=== PATIENT | female | born 1965 | race Caucasian/White ===

== ENCOUNTER 2017-10-20 10:22 | Day surgery (SDC) | payer OTHER ==
[~2017-10-20 10:22] MED LIST: CEFAZOLIN 1 GM INJ; METOCLOPRAMIDE 10 MG INJ; ONDANSETRON 4 MG INJ
[2017-10-20] MEDS ORDERED: LIDOCAINE 2% (SDV) 5 ML INJ (12:07)
[2017-10-20] MEDS ORDERED: DEXAMETHASONE 4 MG/ML 1 ML INJ (12:07)
[2017-10-20] MEDS ORDERED: ROCURONIUM 50 MG INJ (12:07)
[2017-10-20] MEDS ORDERED: MIDAZOLAM 1 MG/ML 2 ML INJ (12:07)
[2017-10-20] MEDS ORDERED: SUCCINYLCHOLINE CHLORIDE 100 MG/5 ML SYG IV (12:07)
[2017-10-20] MEDS ORDERED: FENTAnyl 50 MCG/ML VIAL (12:07)
[2017-10-20] MEDS ORDERED: PROPOFOL 20 ML (12:07)
[2017-10-20] MEDS: POLYMYXIN/BACITRACIN 1L IRRIG (14:22)
[2017-10-20] MEDS: BUPIVACAINE 0.5%/EPI (SDV) 30 ML INJ (14:22)
[2017-10-20] MEDS ORDERED: ROPIVACAINE 0.5 % 30 ML VIAL (14:31)
[2017-10-20] MEDS ORDERED: SUGAMMADEX SODIUM 200 MG/2 ML VIAL IV (14:41)
[2017-10-20] MEDS ORDERED: HYDROmorphONE 1 MG/5 ML IV SYRINGE IV ×2 (15:00→15:30)
[2017-10-20] MEDS ORDERED: hydrALAzine 20 MG INJ (15:03)
[2017-10-20] MEDS ORDERED: MEPERIDINE 25 MG INJ (15:13)
[2017-10-20] MEDS: MEPERIDINE 25 MG INJ IV (15:15)
[2017-10-20] MEDS ORDERED: HYDROCODONE/APAP (5/325) TAB PO ×2 (15:30)
[2017-10-20] MEDS ORDERED: FENTAnyl 50 MCG/ML VIAL IV ×2 (15:30)
[2017-10-20] MEDS ORDERED: morphine 10 MG INJ IV (15:30)
[2017-10-20] MEDS ORDERED: DIPHENHYDRAMINE 50 MG INJ IV (15:30)
== END 2017-10-20 16:58 | disposition home or self-care (01) ==
LOC: SDS 10:22
DX: S52.121D Displaced fracture of head of right radius, subsequent encounter for closed fracture with routine healing (principal); W19.XXXD Unspecified fall, subsequent encounter
CPT/HCPCS: 24365; 73080-RT; 84703; 88304; 88311

== ENCOUNTER 2017-10-30 08:09 | Inpatient (IN) | payer OTHER ==
[2017-10-30] MEDS ORDERED: NACL 0.9% 3 ML SYG IV (10:00)
[2017-10-30] MEDS ORDERED: VANCOMYCIN IV PER PHARMACY XX (10:30)
[2017-10-30 10:51] LABS: ADD MAN DIFF? NO
[2017-10-30 10:53] LABS: WHITE BLOOD COUNT 6.5 10^3/ul (4.8-10.8)
[2017-10-30 10:53] LABS: BASOPHILS % 0.3 % (0.0-2.0); EOSINOPHILS % 0.6 % (0.0-7.0); HEMATOCRIT 32.1 % (37.0-47.0); HEMOGLOBIN 10.5 g/dl (12.0-16.0); LYMPHOCYTES # 1.2 10^3/ul (0.8-2.9); LYMPHOCYTES % 18.8 % (15.0-51.0); MEAN CORPUSCULAR HEMOGLOBIN 29.5 pg (29.0-33.0); MEAN CORPUSCULAR HGB CONC 32.7 g/dl (32.0-37.0); MEAN CORPUSCULAR VOLUME 90.2 fl (82.0-101.0); MEAN PLATELET VOLUME 10.9 fl (7.4-10.4); MONOCYTE # 0.5 10^3/ul (0.3-0.9); MONOCYTES % 6.9 % (0.0-11.0); NEUTROPHIL # 4.8 10^3/ul (1.6-7.5); NEUTROPHILS % 73.2 % (39.0-77.0); PLATELET COUNT 275 10^3/UL (140-415); RED BLOOD COUNT 3.56 10^6/ul (4.20-5.40); RED CELL DISTRIBUTION WIDTH 12.2 % (11.5-14.5)
[2017-10-30] MEDS: PIPER-TAZO 3.375 GM IV (PMX) 100 ML IVPB ×2 (11:00→17:49)
[2017-10-30 11:27] LABS: ALANINE AMINOTRANSFERASE 23 IU/L (13-69); ALBUMIN 3.8 g/dl (3.3-4.9); ALBUMIN/GLOBULIN RATIO 1.31; ALKALINE PHOSPHATASE 79 IU/L (42-121); ANION GAP 14 (8-16); ASPARTATE AMINO TRANSFERASE 22 IU/L (15-46); BILIRUBIN,INDIRECT 0.5 mg/dl (0-1.1); BILIRUBIN,TOTAL 0.5 mg/dl (0.2-1.3); BLOOD UREA NITROGEN 10 mg/dl (7-20); CALCIUM 9.1 mg/dl (8.4-10.2); CARBON DIOXIDE 30 mmol/L (21-31); CHLORIDE 103 mmol/L (97-110); CREATININE 0.74 mg/dl (0.44-1.00); GLUCOSE 89 mg/dl (70-220); POTASSIUM 4.3 mmol/L (3.5-5.1); SODIUM 143 mmol/L (135-144); TOTAL PROTEIN 6.7 g/dl (6.1-8.1)
[2017-10-30] MEDS: SOD CHLORIDE 0.45% 1,000 ML IV ×2 (12:24→23:00)
[2017-10-30] MEDS: HYDROCODONE/APAP (5/325) TAB PO ×2 (12:38→22:01)
[2017-10-30] MEDS: VANCOMYCIN 1.5 GM in SOD CHLORIDE 0.9% 250 ML IVPB (15:01)
[2017-10-30] MEDS: ONDANSETRON 4 MG INJ IV (22:25)
[2017-10-31] MEDS: PIPER-TAZO 3.375 GM IV (PMX) 100 ML IVPB ×4 (00:49→18:04)
[2017-10-31] MEDS: VANCOMYCIN 1 GM 250 ML IVPB ×2 (02:14→14:00)
[2017-10-31] MEDS: SOD CHLORIDE 0.45% 1,000 ML IV (02:18)
[2017-10-31 09:32] LABS: HEMOGLOBIN A1C 5.5 % (0-5.9)
[2017-10-31] MEDS: HYDROCODONE/APAP (5/325) TAB PO ×2 (09:55→18:15)
[2017-11-01] MEDS: SOD CHLORIDE 0.45% 1,000 ML IV ×2 (00:21→10:37)
[2017-11-01] MEDS: PIPER-TAZO 3.375 GM IV (PMX) 100 ML IVPB ×4 (00:21→18:15)
[2017-11-01] MEDS: VANCOMYCIN 1 GM 250 ML IVPB ×2 (02:38→13:03)
[2017-11-01 04:09] LABS: ADD MAN DIFF? NO
[2017-11-01 04:18] LABS: BASOPHILS % 0.6 % (0.0-2.0); EOSINOPHILS # 0.1 10^3/ul (0.0-0.5); EOSINOPHILS % 1.3 % (0.0-7.0); HEMATOCRIT 30.2 % (37.0-47.0); HEMOGLOBIN 9.8 g/dl (12.0-16.0); LYMPHOCYTES # 1.7 10^3/ul (0.8-2.9); LYMPHOCYTES % 33.1 % (15.0-51.0); MEAN CORPUSCULAR HEMOGLOBIN 29.7 pg (29.0-33.0); MEAN CORPUSCULAR HGB CONC 32.5 g/dl (32.0-37.0); MEAN CORPUSCULAR VOLUME 91.5 fl (82.0-101.0); MEAN PLATELET VOLUME 11.2 fl (7.4-10.4); MONOCYTE # 0.5 10^3/ul (0.3-0.9); MONOCYTES % 8.9 % (0.0-11.0); NEUTROPHIL # 2.9 10^3/ul (1.6-7.5); NEUTROPHILS % 55.7 % (39.0-77.0); PLATELET COUNT 260 10^3/UL (140-415); RED CELL DISTRIBUTION WIDTH 11.9 % (11.5-14.5)
[2017-11-01 04:18] LABS: WHITE BLOOD COUNT 5.2 10^3/ul (4.8-10.8)
[2017-11-01 04:39] LABS: ALANINE AMINOTRANSFERASE 24 IU/L (13-69); ALBUMIN 3.1 g/dl (3.3-4.9); ALBUMIN/GLOBULIN RATIO 0.96; ALKALINE PHOSPHATASE 69 IU/L (42-121); ANION GAP 12 (8-16); ASPARTATE AMINO TRANSFERASE 19 IU/L (15-46); BILIRUBIN,INDIRECT 0.3 mg/dl (0-1.1); BILIRUBIN,TOTAL 0.3 mg/dl (0.2-1.3); BLOOD UREA NITROGEN 11 mg/dl (7-20); CALCIUM 8.5 mg/dl (8.4-10.2); CARBON DIOXIDE 26 mmol/L (21-31); CHLORIDE 109 mmol/L (97-110); CREATININE 0.89 mg/dl (0.44-1.00); GLUCOSE 103 mg/dl (70-220); MAGNESIUM 1.9 mg/dl (1.7-2.5); PHOSPHORUS 4.3 mg/dl (2.5-4.9); SODIUM 143 mmol/L (135-144); TOTAL PROTEIN 6.3 g/dl (6.1-8.1)
[2017-11-01] MEDS ORDERED: POLYMYXIN B 500000 UNIT INJ (07:47)
[2017-11-01] MEDS ORDERED: BACITRACIN 50000 UNITS INJ (07:50)
[2017-11-01] MEDS ORDERED: MIDAZOLAM 1 MG/ML 2 ML INJ ×2 (07:55→09:20)
[2017-11-01] MEDS ORDERED: PROPOFOL 20 ML (07:55)
[2017-11-01] MEDS ORDERED: LIDOCAINE 2% (SDV) 5 ML INJ (07:55)
[2017-11-01] MEDS ORDERED: MEPERIDINE 25 MG INJ IV (08:00)
[2017-11-01] MEDS ORDERED: ONDANSETRON 4 MG INJ IV (08:00)
[2017-11-01] MEDS ORDERED: PROCHLORPERAZINE 10 MG INJ IV (08:00)
[2017-11-01] MEDS ORDERED: FENTAnyl 50 MCG/ML VIAL IV ×3 (08:00)
[2017-11-01] MEDS ORDERED: HYDROmorphONE 1 MG/5 ML IV SYRINGE IV (08:00)
[2017-11-01] MEDS ORDERED: DEXAMETHASONE 4 MG/ML 1 ML INJ (08:17)
[2017-11-01] MEDS ORDERED: FAMOTIDINE 20 MG INJ (08:17)
[2017-11-01] MEDS ORDERED: ONDANSETRON 4 MG INJ (08:17)
[2017-11-01] MEDS ORDERED: FENTAnyl 50 MCG/ML VIAL ×2 (08:20→08:52)
[2017-11-01] MEDS: HYDROmorphONE 1 MG/5 ML IV SYRINGE IV ×2 (09:25→09:30)
[2017-11-01] MEDS ORDERED: MAGNESIUM HYDROXIDE 30ML CUP PO (09:30)
[2017-11-01] MEDS: MIDAZOLAM 1 MG/ML 2 ML INJ IV (09:31)
[2017-11-01] MEDS: DIPHENHYDRAMINE 50 MG INJ IV (09:50)
[2017-11-01] MEDS: morphine 2 MG INJ IV (10:38)
[2017-11-01] MEDS: POLYMYXIN/BACITRACIN 1L IRRIG (11:59)
[2017-11-01] MEDS: SENNA/DOCUSATE NA (8.6MG/50MG) TAB PO (21:00)
[2017-11-01] MEDS: morphine LIQ (10 MG/5 ML) CUP PO (21:52)
[2017-11-02] MEDS: PIPER-TAZO 3.375 GM IV (PMX) 100 ML IVPB ×2 (01:35→05:38)
[2017-11-02] MEDS: SOD CHLORIDE 0.45% 1,000 ML IV ×2 (01:35→13:30)
[2017-11-02] MEDS: VANCOMYCIN 1 GM 250 ML IVPB (02:24)
[2017-11-02 05:52] LABS: ADD MAN DIFF? NO
[2017-11-02 05:57] LABS: BASOPHILS % 0.4 % (0.0-2.0); EOSINOPHILS % 0.4 % (0.0-7.0); HEMATOCRIT 29.2 % (37.0-47.0); HEMOGLOBIN 9.6 g/dl (12.0-16.0); LYMPHOCYTES # 2.1 10^3/ul (0.8-2.9); LYMPHOCYTES % 30.5 % (15.0-51.0); MEAN CORPUSCULAR HEMOGLOBIN 29.6 pg (29.0-33.0); MEAN CORPUSCULAR HGB CONC 32.9 g/dl (32.0-37.0); MEAN CORPUSCULAR VOLUME 90.1 fl (82.0-101.0); MEAN PLATELET VOLUME 11.2 fl (7.4-10.4); MONOCYTE # 0.5 10^3/ul (0.3-0.9); MONOCYTES % 6.6 % (0.0-11.0); NEUTROPHIL # 4.2 10^3/ul (1.6-7.5); NEUTROPHILS % 61.8 % (39.0-77.0); PLATELET COUNT 274 10^3/UL (140-415); RED BLOOD COUNT 3.24 10^6/ul (4.20-5.40); RED CELL DISTRIBUTION WIDTH 11.9 % (11.5-14.5)
[2017-11-02 05:57] LABS: WHITE BLOOD COUNT 6.8 10^3/ul (4.8-10.8)
[2017-11-02 06:18] LABS: CREATININE 0.84 mg/dl (0.44-1.00)
[2017-11-02 06:18] LABS: BLOOD UREA NITROGEN 7 mg/dl (7-20)
[2017-11-02 06:28] LABS: ANION GAP 10 (8-16); BLOOD UREA NITROGEN 7 mg/dl (7-20); C-REACTIVE PROTEIN 3.1 mg/dl (0.0-0.9); CALCIUM 8.8 mg/dl (8.4-10.2); CARBON DIOXIDE 27 mmol/L (21-31); CHLORIDE 110 mmol/L (97-110); CREATININE 0.86 mg/dl (0.44-1.00); GLUCOSE 100 mg/dl (70-220); POTASSIUM 3.8 mmol/L (3.5-5.1); SODIUM 143 mmol/L (135-144)
[2017-11-02] MEDS: SENNA/DOCUSATE NA (8.6MG/50MG) TAB PO (09:00)
[2017-11-02] MEDS: RIFAMPIN 300 MG CAP PO (09:09)
[2017-11-02] MEDS: L ACIDOPHIL/B LACTIS/B LONGUM CAPSULE PO (09:09)
[2017-11-02] MEDS: HYDROCODONE/APAP (5/325) TAB PO (09:10)
[2017-11-02] MEDS: CEFTRIAXONE 2 GM/50 ML (PMX) 50 ML IVPB (09:12)
== END 2017-11-02 17:15 | disposition home or self-care (01) | DRG 857 ==
LOC: MS2 10-31 23:50
PROC: 0JDG0ZZ Extraction of Right Lower Arm Subcutaneous Tissue and Fascia, Open Approach (ICD-10-PCS; principal; 2017-11-01 07:30)
DX: T81.4XXA Infection following a procedure, initial encounter (principal); L03.113 Cellulitis of right upper limb; L02.413 Cutaneous abscess of right upper limb; B95.61 Methicillin susceptible Staphylococcus aureus infection as the cause of diseases classified elsewhere; Z87.891 Personal history of nicotine dependence; Y83.8 Other surgical procedures as the cause of abnormal reaction of the patient, or of later complication, without mention of misadventure at the time of the procedure
CPT/HCPCS: 73070; 73080-RT; 80048; 80053; 80202; 82565; 83036; 83735; 84100; 84520; 84703; 85025; 85651; 86140; 87070; 87075

== ENCOUNTER 2018-10-23 08:44 | Day surgery (SDC) | payer OTHER ==
[2018-10-23] MEDS: ACETAMINOPHEN 500 MG TAB PO (09:28)
[2018-10-23] MEDS: LACTATED RINGER'S 1,000 ML IV (09:29)
[2018-10-23 10:01] LABS: ADD UMIC YES; UR ASCORBIC ACID NEGATIVE (NEGATIVE); UR BILIRUBIN (Dip) NEGATIVE (NEGATIVE); UR BLOOD (Dip) 1+ mg/dL (NEGATIVE); UR CLARITY CLOUDY (CLEAR); UR COLOR YELLOW (YELLOW); UR GLUCOSE (Dip) NEGATIVE (NEGATIVE); UR KETONES (Dip) NEGATIVE (NEGATIVE); UR LEUKOCYTE ESTERASE (Dip) 3+ Leu/ul (NEGATIVE); UR NITRITE (Dip) NEGATIVE (NEGATIVE); UR NONSQUAMOUS EPITHELIAL CELL 2 /HPF (NONE SEEN); UR RBC 8 /HPF (0-5); UR SPECIFIC GRAVITY (Dip) 1.016 (1.003-1.030); UR SQUAMOUS EPITHELIAL CELL MODERATE /HPF (FEW); UR TOTAL PROTEIN (Dip) NEGATIVE (NEGATIVE); UR UROBILINOGEN (Dip) NEGATIVE (NEGATIVE); UR WBC 40 /HPF (0-5)
[2018-10-23] MEDS ORDERED: LABETALOL HCL 20MG INJ IV (10:30)
[2018-10-23] MEDS ORDERED: HYDROmorphONE 1 MG/5 ML IV SYRINGE IV ×3 (10:30)
[2018-10-23] MEDS ORDERED: ALBUTEROL 0.083% (NEB) 2.5 MG/3 ML AMP HHN (10:30)
[2018-10-23] MEDS ORDERED: DIPHENHYDRAMINE 50 MG INJ IV (10:30)
[2018-10-23] MEDS ORDERED: FENTAnyl 50 MCG/ML VIAL IV ×2 (10:30)
[2018-10-23] MEDS ORDERED: DESFLURANE 15 MIN (10:30)
[2018-10-23] MEDS ORDERED: OXYCODONE/ACETAMINOPHEN (5/325) TAB PO ×2 (10:30)
[2018-10-23] MEDS ORDERED: morphine 2 MG INJ IV ×3 (10:30→11:30)
[2018-10-23] MEDS ORDERED: POLYMYXIN/BACITRACIN 1L IRRIG (10:33)
[2018-10-23] MEDS ORDERED: PROPOFOL 40 ML (10:49)
[2018-10-23] MEDS ORDERED: ONDANSETRON 4 MG INJ (10:49)
[2018-10-23] MEDS ORDERED: FENTAnyl 50 MCG/ML VIAL (10:49)
[2018-10-23] MEDS ORDERED: CEFAZOLIN 1 GM INJ (10:49)
[2018-10-23] MEDS ORDERED: MIDAZOLAM 1 MG/ML 2 ML INJ (10:49)
[2018-10-23] MEDS ORDERED: LIDOCAINE 2% (SDV) 5 ML INJ (10:49)
[2018-10-23] MEDS ORDERED: FAMOTIDINE 20 MG INJ (10:49)
[2018-10-23] MEDS: BUPIVACAINE 0.5%/EPI (SDV) 30 ML INJ (11:18)
[2018-10-23] MEDS ORDERED: KETOROLAC 15 MG INJ IM (11:25)
[2018-10-23] MEDS ORDERED: ONDANSETRON 4 MG INJ IV (11:30)
[2018-10-23] MEDS ORDERED: HYDROCODONE/APAP (5/325) TAB PO ×2 (11:30)
[2018-10-23] MEDS: MEPERIDINE 25 MG INJ IV (11:48)
[2018-10-23] MEDS: ONDANSETRON 4 MG INJ IV (11:48)
== END 2018-10-23 13:35 | disposition home or self-care (01) ==
LOC: SDS 08:44
DX: S52.501D Unspecified fracture of the lower end of right radius, subsequent encounter for closed fracture with routine healing (principal); X58.XXXD Exposure to other specified factors, subsequent encounter
CPT/HCPCS: 24370; 81001; 86850; 86900; 86901; 88300